=== PATIENT | female | born 1970 | race Caucasian/White ===

== ENCOUNTER → 2023-03-09 | Outpatient (CLI) | payer SELFPAY ==
--- NOTE | 2023-03-09 10:52 | MM ---
Reason for Exam: Clinical finding. Indicated Problems: Lump or thickening of the left side for 3 Week(s). Patient History: Menarche at age 12. First Full-Term at age 20. Risk Values: Theresa 5 year model risk: 0.8%. NCI Lifetime model risk: 7.0%. Prior Study Comparison: No prior studies available for comparison. Tissue Density: There are scattered fibroglandular densities. Findings: Analyzed By CAD. Palpable marker placed along the upper outer quadrant of the left breast. Some underlying scattered fibroglandular tissue is present at the upper outer quadrant palpable site. 3-D images show no discrete persisting mass or other abnormality. Some scattered benign vascular calcifications are noted. No suspicious microcalcifications. Overall Assessment: Incomplete: need additional imaging evaluation, BI-RAD 0 Management: Diagnostic Breast Ultrasound of the left breast. Upper outer quadrant and palpable site. Electronically signed and approved by: Roxy Stovall M.D. Radiologist
--- NOTE | 2023-03-09 11:16 | USB ---
Patient History: Menarche at age 12. First Full-Term at age 20. Risk Values: Theresa 5 year model risk: 0.8%. NCI Lifetime model risk: 7.0%. Findings: The area of palpable concern of the left breast, the axilla of the left breast and the retroareolar of the left breast were scanned. Targeted ultrasound of the patient's palpable site 12:00 position shows dense tissue. No solid or cystic lesion or axillary lymphadenopathy.. Overall Assessment: Probably benign, BI-RAD 3 Management: Diagnostic Mammogram of the left breast in 6 months. A clinical breast exam by your physician is recommended on an annual basis and results should be correlated with mammographic findings. This exam should not preclude additional follow-up of suspicious palpable abnormalities. Results were given to the patient verbally at the time of exam. Electronically signed and approved by: Roxy Stovall M.D. Radiologist
== END | disposition home or self-care (01) ==
LOC: RADMAMWWP 10:17
PROVIDERS: ATTEND Family Medicine
DX: N63.21 Unspecified lump in the left breast, upper outer quadrant (principal); R92.323 Mammographic fibroglandular density, bilateral breasts
CPT/HCPCS: 77062; 77066